=== PATIENT | female | born 1955 | race Caucasian/White ===

== ENCOUNTER 2018-05-23 22:36 | Emergency (ER) | payer MEDICAID ==
[~2018-05-23] VITALS: Ht 157.5 cm; Wt 54.4 kg
[2018-05-23 22:36] VITALS: BP 110/70
[2018-05-23] MEDS ORDERED: MEMA10TA PO (22:56)
[2018-05-23] MEDS ORDERED: [UNRECOGNIZED DRUG - CODE] PO (22:56)
[2018-05-23] MEDS ORDERED: QUET25TA PO (22:56)
[2018-05-23] MEDS ORDERED: SIME20SU1 PO (22:56)
[2018-05-24 00:18] VITALS: BP 110/70
== END 2018-05-24 00:18 | disposition home or self-care (01) ==
LOC: MED 22:36
DX: J06.9 Acute upper respiratory infection, unspecified (principal); G10 Huntington's disease; Z79.899 Other long term (current) drug therapy
CPT/HCPCS: 36415; 71045; 87804; 99284; Q0092